=== PATIENT | female | born 1945 | race Caucasian/White ===

== ENCOUNTER 2016-09-27 04:12 | Inpatient (IN) ==
[2016-09-25 15:13] LABS: MANUAL DIFF NEEDED? NO; URINE MICRO REVIEW NEEDED? NO; URINE SOURCE CLEAN CATCH
[2016-09-25 15:17] LABS: BILIRUBIN URINE NEGATIVE (NEGATIVE); BLOOD URINE NEGATIVE (NEGATIVE); COLOR YELLOW; GLUCOSE URINE NEGATIVE (NEGATIVE); LEUKOCYTES URINE TRACE (NEGATIVE); NITRITE URINE NEGATIVE (NEGATIVE); PROTEIN URINE NEGATIVE (NEGATIVE); TURBIDITY URINE CLEAR (CLEAR); UROBILINOGEN URINE NORMAL (NORMAL)
[2016-09-25 15:18] LABS: UR EPITHELIAL CELLS <10 /HPF (<10); URINE BACTERIA NEGATIVE /HPF; URINE RBC <10 /HPF (<10); URINE WBC <10 /HPF (<10)
[2016-09-25 15:19] LABS: BASO% 0.2 % (0.0-0.8); EOS# 0.16 X1000 (0.0-0.7); EOS% 3.1 % (0.0-10.0); HEMATOCRIT 43.8 % (37.0-47.0); HEMOGLOBIN 14.4 g/dL (12.0-16.0); LYMPH# 1.44 X1000 (1.2-3.4); LYMPH% 28.3 % (20.5-51.1); MCHC 32.9 g/dL (33-37); MCV 100.2 FL (81-99); MONO# 0.51 X1000 (0.11-0.59); MPV 10.4 FL (7.4-10.4); NEUT% 58.4 % (42.2-75.2); PLT 221 X1000 (130-400); RBC 4.37 XMIL (4.2-5.4)
[2016-09-25 15:30] LABS: INR 0.98; PROTIME 10.4 Seconds (9.2-11.7); PTT 27.9 Seconds (22.0-36.0)
[2016-09-25 15:34] LABS: AGAP 13; BUN 15 mg/dL (8-22); CALCIUM 9.2 mg/dL (8.8-10.2); CHLORIDE 97 mmol/L (98-107); COSMO 281; POTASSIUM 4.1 mmol/L (3.5-5.1); SODIUM 140 mmol/L (136-145); TCO2 30 mmol/L (25-35)
[2016-09-27] MEDS ORDERED: SYSTANE EYE DROPS OPH PRN (06:45)
[2016-09-27] MEDS ORDERED: CRESTOR PO SCH (09:00)
[2016-09-27] MEDS ORDERED: SYNTHROID PO SCH (09:00)
[2016-09-27] MEDS ORDERED: ASPIRIN EC PO SCH ×2 (09:00→21:00)
[2016-09-27] MEDS ORDERED: COLACE ONE (09:47)
[2016-09-27] MEDS ORDERED: KEFZOL 2 GM/D5W 50 ML ONE (09:47)
[2016-09-27] MEDS ORDERED: LR 1,000 ML ONE (09:47)
[2016-09-27] MEDS ORDERED: REGLAN ONE (09:47)
[2016-09-27] MEDS ORDERED: PEPCID ONE (09:47)
[2016-09-27] MEDS ORDERED: PERCOCET-5 ONE (10:00)
[2016-09-27] MEDS ORDERED: NAROPIN 0.5% ONE (10:32)
[2016-09-27] MEDS ORDERED: TORADOL ONE (10:39)
[2016-09-27] MEDS ORDERED: VANCOMYCIN ONE (10:40)
[2016-09-27] MEDS ORDERED: MARCAINE 0.25% PF/EPI 1:200,000 ONE (10:40)
[2016-09-27] MEDS ORDERED: SODIUM CHLORIDE 0.9% ONE (10:40)
[2016-09-27] MEDS ORDERED: CYKLOKAPRON 1,000 MG/NS 100 ML ONE (10:40)
[2016-09-27] MEDS ORDERED: DURAMORPH ONE (10:40)
[2016-09-27] MEDS ORDERED: CLAVE SECONDARY SET 11953 ONE (10:41)
[2016-09-27] MEDS ORDERED: NEOSPORIN G.U. IRRIGANT ONE (10:41)
[2016-09-27] MEDS ORDERED: EXPAREL 1.3% ONE (10:41)
[2016-09-27] MEDS ORDERED: VERSED ONE (10:43)
[2016-09-27] MEDS ORDERED: DIPRIVAN 1% ONE (14:06)
[2016-09-27] MEDS ORDERED: NEOSTIGMINE ONE (14:20)
[2016-09-27] MEDS ORDERED: SODIUM CHLORIDE 0.9% 20 ML ONE (14:20)
[2016-09-27] MEDS ORDERED: NEO-SYNEPHRINE ONE (14:21)
[2016-09-27] MEDS ORDERED: EPHEDRINE ONE (14:21)
[2016-09-27] MEDS ORDERED: XYLOCAINE-MPF 2% ONE (14:21)
[2016-09-27] MEDS ORDERED: ROBINUL ONE (14:21)
[2016-09-27] MEDS ORDERED: ZOFRAN ONE (14:21)
[2016-09-27] MEDS ORDERED: NORCURON ONE (14:21)
[2016-09-27] MEDS ORDERED: LR 3,000 ML ONE (14:22)
[2016-09-27] MEDS ORDERED: DECADRON ONE (14:22)
[2016-09-27] MEDS ORDERED: PIGGYBACK SET 7393 ONE (14:22)
[2016-09-27] MEDS ORDERED: QUELICIN (DOSE) ONE (14:22)
[2016-09-27] MEDS ORDERED: NS 1,000 ML ONE (14:31)
--- NOTE | 2016-09-27 14:39 | OPERATIVE NOTE ---
PROCEDURE DATE: 09/27/2016 PREOPERATIVE DIAGNOSIS: Left displaced proximal humeral fracture. POSTOPERATIVE DIAGNOSIS: Left displaced proximal humeral fracture. PROCEDURE PERFORMED: Left reverse total shoulder arthroplasty with a DePuy Delta Xtend size 10 cemented stem; a 42, +6 humeral cup; 42 eccentric Glenosphere, and a standard metaglene. SURGEON: Yogesh Agarwal MD WELFARE WORKER: TIN Dubon ANESTHESIA: General. IV FLUIDS: 3200 mL of lactated Ringer's. ESTIMATED BLOOD LOSS: 400 mL. COMPLICATIONS: None. INDICATIONS: The patient is a 71-year-old female, status post fall, sustaining a left proximal humeral fracture. Upon followup visit, she had some displacement and recommendation to proceed with left displaced left proximal humeral fracture. A recommendation to proceed with left reverse total shoulder arthroplasty was offered. The risks and benefits of surgery were explained, including the risks of anesthesia, , bleeding, infection, failure to relieve pain, postop stiffness, nerve injury, blood clots, and other imponderables. All questions were answered. The patient and family wished to proceed with surgery. DETAILS OF OPERATION: The patiently was taken to the operating room and placed supine on the operating table. Once adequate anesthesia was obtained, the patient was placed in semi-Lara beach-chair positioning. The left shoulder was subsequently prepped and draped in usual sterile fashion. A standard deltopectoral incision was made with a skin knife. Hemostasis was obtained using electrocautery. The deltopectoral interval was then developed. Retractors were then placed. Attention was then turned to the proximal humerus, where the fracture site was identified. The subscapularis tendon was excised off its attachment on the lesser tuberosity. Elevation of this bone fragment was then removed. After this had been performed, attention was turned to the humeral head and this was removed without difficulty. The greater tuberosity was also removed with sharp dissection with the 11 blade. After this had been performed, attention was then turned to the glenoid, where circumferential dissection was then performed. A guide was then placed on the glenoid and a guide pin was placed. Reaming was then conducted. The central hole was then dilated. The guide pin was removed. The wound was copiously irrigated with antibiotic pulsatile lavage. A standard metaglene was then placed in position. Three locking screws were placed and had good fixation. The wounds copiously irrigated again once again with antibiotic pulsatile lavage. A 42 eccentric glenosphere was then placed with the eccentricity placed inferiorly. After this had been performed, attention was then turned to the proximal humerus. Sequential reaming was then conducted up to size 10. After copious irrigation, a trial stem was then placed in position to determine the appropriate height. After this had been confirmed, the wound was copiously irrigated with antibiotic irrigation. Vancomycin was mixed with cement on the back table. Cementing was then placed in the intramedullary canal. The cement was then placed in the intramedullary canal. The humeral stem was then placed in 10 degrees of retroversion. After the cement hardened, trial cups were then placed. The 42, +6 humeral cup had excellent stability and range of motion. The trial cup was removed. Copious irrigation was then performed once again. A 42, +6 humeral cup was then placed. The shoulder was then reduced. It was carried through range of motion and good stability range of motion. Exparel was placed in the deep soft tissue, as well as subcutaneous tissue. Copious irrigation was then performed once again with antibiotic pulsatile lavage. Suture of 2-0 Vicryl was used to close the subcutaneous tissue in interrupted fashion. A running 2-0 Prolene was then used to close the skin. Benzoin and Steri-Strips were applied. Adaptic, sterile 4 x 4's, ABD pad, and tape were applied to the left shoulder, followed by a shoulder immobilizer. All counts were correct. The patient tolerated the procedure well and was transferred to the recovery room in stable condition.
--- NOTE | 2016-09-27 15:29 | Diag Imaging Result Document ---
PROCEDURE NAME: SHOULDER 1 VIEW LEFT - 09/27/2016 LEFT SHOULDER 1 VIEW: COMPARISON: None. FINDINGS: There has been left total shoulder arthroplasty. Alignment is anatomic. No hardware fracture or loosening. IMPRESSION: No evidence of complication.
[2016-09-27] MEDS: ZYLOPRIM PO SCH (15:47)
[2016-09-27] MEDS: NEURONTIN PO SCH ×3 (15:49→18:21)
[2016-09-27] MEDS: PRINIVIL PO SCH (15:49)
[2016-09-27] MEDS: MUCINEX PO SCH (15:50)
[2016-09-27] MEDS: LASIX PO SCH (15:50)
[2016-09-27] MEDS: KLOR-CON PO SCH (15:50)
[2016-09-27] MEDS: CENTRUM SILVER PO SCH (15:51)
[2016-09-27] MEDS ORDERED: MORPHINE IV PRN (16:36)
[2016-09-27] MEDS ORDERED: ZOFRAN PO PRN (16:45)
[2016-09-27] MEDS ORDERED: NS 1,000 ML IV SCH (16:45)
[2016-09-27] MEDS ORDERED: MILK OF MAGNESIA PO PRN (16:45)
[2016-09-27] MEDS ORDERED: CYKLOKAPRON 1,000 MG in NS 100 ML IV ONE (18:15)
[2016-09-27] MEDS: TYLENOL PO SCH ×2 (18:21→22:52)
--- NOTE | 2016-09-27 18:40 | HISTORY AND PHYSICAL ---
CHIEF COMPLAINT: Left shoulder pain. HISTORY OF PRESENT ILLNESS: Ms. King is a 71-year-old female with a history of left shoulder pain. She took a fall and fractured her left humerus. Since then she has been having left shoulder pain. Radiographic images show a 3-part fracture of the neck of the humerus. She is being admitted to the hospital today for a total shoulder arthroplasty. PAST MEDICAL CONDITIONS: Hypertension, hyperlipidemia, acid reflux, osteoarthritis, hypothyroidism, neuropathy in her feet and legs. PAST SURGICAL HISTORY: Bilateral cataracts, lumbar surgery, cholecystectomy, rectal lesion. FAMILY HISTORY: Noncontributory. SOCIAL HISTORY: She is . She drinks wine at night. Denies using any tobacco. CURRENT MEDICATIONS: 1. Ocuvite supplement 1 eye drop daily. 2. Lisinopril 20 mg p.o. daily. 3. Crestor 10 mg p.o. daily. 4. Potassium chloride 20 mEq p.o. daily. 5. Allopurinol 300 mg p.o. daily. 6. Synthroid 125 mcg p.o. daily. 7. Lasix 80 mg p.o. daily. 8. Gabapentin 1200 mg p.o. t.i.d. 9. Aspirin 81 mg p.o. daily. 10. Cyanocobalamin 1000 mcg p.o. daily. 11. Naproxen 220 mg 2 tablets p.o. every morning, 12. Mucinex 600 mg p.o. daily. 13. Ascorbic acid 1000 mg p.o. daily. 14. Soothe eye drops 1 as directed. 15. Viactiv chew tab 1 p.o. b.i.d. 16. Oxycodone/acetaminophen 5/325 mg tablet 1 p.o. p.r.n. ALLERGIES: To Requip, niacin, Lyrica, Restasis, Mobic, Zaroxolyn, Bumex, Celebrex, and looks like codeine. PRIMARY CARE PROVIDER: Parisa Light. REVIEW OF SYSTEMS: HEENT: The patient wears glasses. Denies any other HEENT problems. Cardiac: Patient denies any cardiac problems, any syncope or chronic heart disease. Pulmonary: Patient denies any chronic lung disease or any coughing or wheezing. Gastrointestinal: Patient denies any chronic gastrointestinal problems or any nausea, vomiting, diarrhea. Genitourinary: Patient denies any genitourinary problems. Neurological: Patient reports having tingling and pain in her feet and legs. Musculoskeletal: Patient reports left shoulder pain. PHYSICAL EXAMINATION: GENERAL: The patient is awake, sitting up in bed. She is articulate and able to answer questions appropriately. HEENT: Head is normocephalic, atraumatic. Pupils equal, round, react to light. Nares patent. Throat without exudate. CARDIAC: S1-S2 auscultated. No murmur, rub or gallop noted. LUNGS: Clear to auscultation bilaterally in all lung garcia. ABDOMEN: Soft, nontender, nondistended. Bowel sounds present in all quadrants. GENITOURINARY: Not examined. NEUROLOGICAL: Patient has good sensation to dull touch in all extremities. Cranial nerves 2-12 grossly intact. MUSCULOSKELETAL: On physical examination of the left shoulder the patient has pain with passive range of motion. There is some ecchymosis around the upper left arm, around the shoulder and the upper portion of the humerus. IMPRESSION: Three-part fracture of the neck of the humerus. PLAN: Left reverse total shoulder arthroplasty. The risks, benefits, and alternatives of the surgery were discussed with the patient including risk of anesthesia, bleeding, damage to blood vessels, nerves, tendons, ligaments, and other imponderables, and the patient agrees to proceed with the surgery at this time. Dictated by TIN Dubon for Yogesh Agarwal MD
[2016-09-27] MEDS: PERIDEX MT SCH (20:37)
[2016-09-27] MEDS: COLACE PO SCH (20:38)
[2016-09-27] MEDS: KEFZOL 2 GM/D5W 50 ML IV SCH (20:38)
[2016-09-27] MEDS: OXY IR PO PRN (22:51)
[2016-09-28] MEDS: NEURONTIN PO SCH ×3 (00:04→16:28)
[2016-09-28 00:33] LABS: BILIRUBIN URINE NEGATIVE (NEGATIVE); BLOOD URINE NEGATIVE (NEGATIVE); COLOR YELLOW; GLUCOSE URINE NEGATIVE (NEGATIVE); LEUKOCYTES URINE NEGATIVE (NEGATIVE); NITRITE URINE NEGATIVE (NEGATIVE); PROTEIN URINE TRACE mg/dL (NEGATIVE); SP GRAVITY URINE 1.025; TURBIDITY URINE CLEAR (CLEAR); UR EPITHELIAL CELLS <10 /HPF (<10); URINE BACTERIA NEGATIVE /HPF; URINE CULTURE NEEDED? NO; URINE MICRO REVIEW NEEDED? NO; URINE RBC <10 /HPF (<10); URINE SOURCE CATH; URINE WBC <10 /HPF (<10); UROBILINOGEN URINE NORMAL (NORMAL)
[2016-09-28] MEDS: OXY IR PO PRN (02:52)
[2016-09-28] MEDS: TYLENOL PO SCH ×2 (04:42→12:03)
[2016-09-28] MEDS: KEFZOL 2 GM/D5W 50 ML IV SCH (04:43)
[2016-09-28 06:21] LABS: HEMATOCRIT 35.1 % (37.0-47.0); HEMOGLOBIN 11.4 g/dL (12.0-16.0)
[2016-09-28 06:29] LABS: CALCIUM 8.2 mg/dL (8.8-10.2)
[2016-09-28] MEDS ORDERED: SYNTHROID PO SCH (07:00)
--- NOTE | 2016-09-28 08:04 | PROGRESS NOTE ---
DATE: 09/28/2016 SUBJECTIVE: The patient is a pleasant, 71-year-old female who is 1 day status post left reverse shoulder arthroplasty. She is currently resting comfortably this morning. OBJECTIVE: On physical exam, her dressing is intact. She is grossly neurovascularly intact distally. Able to flex all fingers. 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 LABS: Her hemoglobin is 11.4 and hematocrit 35.1. IMPRESSION: Postoperative day #1 status post left reverse shoulder arthroplasty. PLAN: At this point we will change her dressing, discontinue her drain, and Hep-Lock her IV. I will plan on discharging home after physical therapy. She will follow up in 12 days for suture removal.
[2016-09-28] MEDS: PERIDEX MT SCH (08:05)
[2016-09-28] MEDS: ZYLOPRIM PO SCH (08:06)
[2016-09-28] MEDS: MUCINEX PO SCH (08:06)
[2016-09-28] MEDS: KLOR-CON PO SCH (08:06)
[2016-09-28] MEDS: LASIX PO SCH (08:06)
[2016-09-28] MEDS: COLACE PO SCH (08:07)
[2016-09-28] MEDS: PRINIVIL PO SCH (08:07)
[2016-09-28] MEDS: CENTRUM SILVER PO SCH (08:08)
[2016-09-28] MEDS ORDERED: PEPCID PO SCH (09:00)
[2016-09-28] MEDS ORDERED: ALEVE PO SCH (09:00)
[2016-09-28] MEDS ORDERED: DECADRON IV ONE (09:00)
[2016-09-28] MEDS ORDERED: ALBUTEROL NEB INH ONE (14:36)
[2016-09-28 16:11] VITALS: BP 115/55
[2016-09-28] MEDS ORDERED: CRESTOR PO SCH (22:00)
== END 2016-09-28 17:20 | disposition home health service (06) | DRG 483 ==
LOC: SURHOLD 04:12 → 4N 14:14
PROVIDERS: ADMIT Orthopaedic Surgery Adult Reconstructive Orthopaedic Surgery; ATTEND Orthopaedic Surgery Adult Reconstructive Orthopaedic Surgery
PROC: 0RRK00Z Replacement of Left Shoulder Joint with Reverse Ball and Socket Synthetic Substitute, Open Approach (ICD-10-PCS; principal; 2016-09-27 11:47)
DX: S42.292A Other displaced fracture of upper end of left humerus, initial encounter for closed fracture (principal); G62.9 Polyneuropathy, unspecified; I10 Essential (primary) hypertension; E78.5 Hyperlipidemia, unspecified; M19.90 Unspecified osteoarthritis, unspecified site; E03.9 Hypothyroidism, unspecified; Z87.891 Personal history of nicotine dependence; E66.9 Obesity, unspecified; Z68.36 Body mass index [BMI] 36.0-36.9, adult; Z79.82 Long term (current) use of aspirin; Z79.899 Other long term (current) drug therapy; Z79.1 Long term (current) use of non-steroidal anti-inflammatories (NSAID)
CPT/HCPCS: 80048; 81001; 85014; 85018; 85025; 85610; 85730; 86850; 86900; 86901; 94640; 94761; C1713; C9290; J0330; J0690; J1100; J1885; J2250; J2274; J2370; J2405; J2795; J3370; J7030; J7120; 97110-GP; 97116-GP; 97530-GP; J2710; S0020

== ENCOUNTER 2019-11-01 20:47 | Inpatient (IN) ==
--- NOTE | 2019-11-01 21:54 | Diag Imaging Result Doc PS360 ---
EXAM: CHEST-PORTABLE 11/01/2019 HISTORY: unreponsive TECHNIQUE: AP portable at 2141 COMMENT: There is an endotracheal tube with its tip 2 cm above the michelle. The inspiration is less optimal than on 08/25/2019. There is a platelike opacity in the lingula which was not previously present. IMPRESSION: Subsegmental atelectasis in the lingula. Electronically signed by Cristino Street 11/01/2019 9:52 PM
[2019-11-01] MEDS ORDERED: EPINEPHRINE SYRINGE ONE (22:00)
[2019-11-01] MEDS ORDERED: DIPRIVAN 1% IV STA (22:34)
[2019-11-01] MEDS ORDERED: NS 1,000 ML IV ONE ×3 (22:38→23:36)
[2019-11-01] MEDS ORDERED: DIPRIVAN 1% 1,000 MG/100 ML BOTTLE IV SCH (22:45)
[2019-11-01] MEDS ORDERED: D50W SYRINGE ONE (23:50)
[2019-11-01] MEDS ORDERED: ATIVAN ONE (23:57)
[2019-11-02] MEDS ORDERED: ATIVAN IM ONE (00:32)
[2019-11-02 00:55] LABS: BASO% 1.1 % (0.0-0.8); EOS# 0.07 X1000 (0.0-0.7); EOS% 0.3 % (0.0-10.0); HEMATOCRIT 35.4 % (37.0-47.0); IMM GRAN# 1.29 X1000 (0.0-0.04); IMM GRAN% 4.7 % (0.0-0.5); LYMPH# 4.14 X1000 (1.2-3.4); MCH 32.1 PG (27-31); MCHC 31.1 g/dL (33-37); MCV 103.2 FL (81-99); MONO# 1.54 X1000 (0.11-0.59); MONO% 5.6 % (1.7-9.3); MPV 11.6 FL (7.4-10.4); NEUT# 20.18 X1000 (1.4-6.5); NEUT% 73.3 % (42.2-75.2); PLT 241 X1000 (130-400); RBC 3.43 XMIL (4.2-5.4); RDW 13.7 % (11.5-14.5); WBC 27.52 X1000 (4.8-10.8)
[2019-11-02] MEDS ORDERED: DIPRIVAN 1% IV ONE (00:57)
[2019-11-02] MEDS ORDERED: QUELICIN IV ONE (00:58)
[2019-11-02 01:24] LABS: URINE SOURCE CLEAN CATCH
[2019-11-02 01:35] LABS: BILIRUBIN URINE NEGATIVE (NEGATIVE); BLOOD URINE MODERATE (NEGATIVE); COLOR YELLOW; GLUCOSE URINE NEGATIVE (NEGATIVE); KETONE URINE NEGATIVE (NEGATIVE); LEUKOCYTES URINE NEGATIVE (NEGATIVE); NITRITE URINE NEGATIVE (NEGATIVE); PH URINE 5.5; PROTEIN URINE TRACE mg/dL (NEGATIVE); SP GRAVITY URINE 1.013; TURBIDITY URINE HAZY (CLEAR); UROBILINOGEN URINE NORMAL (NORMAL)
[2019-11-02 01:43] LABS: CK INDEX 0.7 (0.0-2.5); CK-MB 119.4 ng/mL (0.0-5.0)
[2019-11-02 01:43] LABS: UR AMPHETAMINES QUAL NONE DETECTED (NONE DETECT); UR BARBITUATES QUAL NONE DETECTED (NONE DETECT); UR BENZODIAZEPIN QUAL NONE DETECTED (NONE DETECT); UR CANNABINOIDS QUAL NONE DETECTED (NONE DETECT); UR COCAINE QUAL NONE DETECTED (NONE DETECT); UR EPITHELIAL CELLS <10 /HPF (<10); UR METHADONE QUAL NONE DETECTED (NONE DETECT); UR OPIATES QUAL NONE DETECTED (NONE DETECT); UR OXYCODONE QUAL NONE DETECTED (NONE DETECT); UR PCP QUAL NONE DETECTED (NONE DETECT); URINE BACTERIA NEGATIVE /HPF; URINE WBC <10 /HPF (<10)
[2019-11-02 01:50] LABS: URINE CASTS GRANULAR PRESENT; URINE CRYSTALS NONE SEEN; URINE RBC <10 /HPF (<10); URINE SMALL ROUND CELLS NONE SEEN; URINE YEAST NONE SEEN
[2019-11-02 01:55] LABS: ALLEN TEST YES; BE -24.3 mmoll (-3.0-3.0); BLOOD TYPE ARTERIAL; METHB 0.2 % (0.0-1.5); O2(CT) 16.1 mL/dL (15.0-23.0); PCO2(98.6) 31 mmHg (35-45); PO2(98.6) 113 mmHg (60-100); SAMPLE BLOOD; SAO2 97.9 % (95.0-100.0); SRATE 15 BPM; THB 11.8 g/dL (11.5-17.4); TVOL 500 mL
[2019-11-02 01:57] LABS: pH(98.6) 6.95 (7.35-7.45)
[2019-11-02 01:58] LABS: MODALITY VENTILATOR
[2019-11-02] MEDS ORDERED: XYLOCAINE-MPF 1% INJ ONE (02:11)
[2019-11-02] MEDS ORDERED: ROCEPHIN IV ONE (02:11)
[2019-11-02] MEDS ORDERED: ROCEPHIN 1 GM in NS 50 ML IV ONE (02:12)
[2019-11-02] MEDS ORDERED: VANCOMYCIN IV PER PHARMACY MISC SCH ×2 (02:15→18:45)
[2019-11-02 02:35] LABS: ALB/GLOB RATIO 1.4; ALBUMIN 2.7 g/dL (3.5-5.0); CALCIUM 7.7 mg/dL (8.8-10.2); CREATININE 5.4 mg/dL (0.5-0.9); TOTAL BILIRUBIN 1.05 mg/dL (0.20-1.00); TOTAL PROTEIN 4.6 g/dL (6.3-8.3)
[2019-11-02 02:36] LABS: POTASSIUM 6.3 mmol/L (3.5-5.1)
--- NOTE | 2019-11-02 02:47 | PROVIDER DOCUMENTATION ---
This chart was entered by Shaun Connolly Scribe, acting as scribe for Andres Mosley DO. HPI-Critical Care - General Stated Complaint: unresponsive Time Seen by Provider: 11/01/19 21:18 Patient arrived via EMS?: Yes Source: EMS Unable to obtain history due to:: other (unresponsive) Allergies/Adverse Reactions: Allergies Allergy/AdvReac Type Severity Reaction Status Date / Time pregabalin [From Lyrica] AdvReac Intermediate SWELLING Verified 09/27/16 10:03 bumetanide [From Bumex] AdvReac Mild RASH Verified 09/27/16 10:03 celecoxib [From Celebrex] AdvReac Mild RASH Verified 09/27/16 10:03 codeine AdvReac Mild RASH Verified 09/27/16 10:03 cyclosporine [From Restasis] AdvReac Mild ITCHING Verified 09/27/16 10:03 meloxicam [From Mobic] AdvReac Mild RASH Verified 09/27/16 10:03 metolazone [From Zaroxolyn] AdvReac Mild RASH Verified 09/27/16 10:03 niacin AdvReac Mild RASH Verified 09/27/16 10:03 ropinirole HCl * AdvReac Mild RASH Verified 09/27/16 10:03 [From Requip] Home Medications: Home Medication List Medication Instructions Recorded Confirmed Last Taken Type Allopurinol 300 mg PO DAILY 01/13/16 06/05/19 08/30/17 History Aspirin [Aspirin EC] 81 mg PO DAILY 01/13/16 06/05/19 1 Week Ago History ~08/24/17 Gabapentin 400 mg PO BID 01/13/16 06/05/19 08/30/17 History LISINOpril [Prinivil] 20 mg PO DAILY 01/13/16 06/05/19 08/30/17 History Levothyroxine [Synthroid] 125 mcg PO DAILY 01/13/16 06/05/19 08/30/17 History Potassium Chloride [Klor-Con M20] 20 meq PO DAILY 01/13/16 06/05/19 08/30/17 History Rosuvastatin Calcium [Crestor] 10 mg PO DAILY 01/13/16 06/05/19 08/30/17 History Ascorbic Acid [Vitamin C] 1,000 mg PO DAILY 0106/05/19 08/30/17 History Cyanocobalamin (Vitamin B-12) 1,000 mcg PO DAILY 08/01/16 06/05/19 08/30/17 History [Vitamin B-12] Folic Acid 1 mg PO DAILY 08/27/17 06/05/19 08/30/17 History Calcium Carb/Vitamin D3/Vit K1 1 tab PO DAILY 06/05/19 06/05/19 Unknown History [Viactiv 650 mg-12.5 Mcg Chew] Pantoprazole [Protonix 40 mg PO DAILY 06/05/19 06/05/19 Unknown History [Nonformulary]] Tetrahydrozoline HCl [Eye Drops] 1 dose ORDERED PRN PRN 06/05/19 06/05/19 Unknown History Torsemide 20 mg PO DAILY 06/05/19 06/05/19 Unknown History - History of Present Illness-Critical Care Nature of Presenting Problem: Pt is a 74 y/o F presents to the ED from personal residence unresponsive. Neighbors have not seen pt is a few days and checked on her. Unknown source reports she has not been seen for 4 days. Pre-hospital Treatment: Initiated oxygen Review of Systems - Adult - REVIEW OF SYSTEMS - ADULT ROS:: unobtainable per condition Constitutional: reports: no symptoms reported Past History - Adult - PAST MEDICAL HISTORY-ADULT Review of Records: reports: Old Records Reviewed, Nursing Assessment Review, Medications Reviewed Major Childhood Illnesses: reports: denies history Cardiovascular: reports: denies history, HTN Respiratory: reports: denies history Gastrointestinal: reports: GERD Obstetrical/Gynecological: reports: other (post menopausal) Musculoskeletal: reports: other (neuropathy) Neurological: reports: denies history Psychiatric: reports: denies history Endocrine/Immune: reports: denies history Other Conditions: reports: denies history - PRIOR SURGERIES/PROCEDURES Surgical/Procedure History: reports: cholecystectomy, other (hernia repair; lower back surgery) - IMMUNIZATION STATUS Childhood Immunizations: See Nurse Assessment Flu Vaccine: See Nurse Assessment - FAMILY HISTORY Family History: reviewed, not pertinent - SOCIAL HISTORY Smoking: non-smoker Living Situation: alone Physical Exam-General - CONSTITUTIONAL General Appearance: other (Pt covered in feces on arrival). negative: appears well, alert - EYES Eyes: pale conjunctivae. negative: PERRL/EOMI (pupils dilated with mild respone to light on left) - HEAD, EARS, NOSE, MOUTH & THROAT HENMT: negative: moist mucous membranes (dry), normal ENT inspection - RESPIRATORY Respiratory: decreased rate, other (pt shallow breathing on arrival, BVM until intubation) - CARDIOVASCULAR Cardiovascular: negative: normal peripheral pulses (weak thready pulses), regular rate, rhythm (irregular) - MUSCULOSKELETAL Extremity: no pedal edema. negative: normal gait, normal inspection (left upper extremity swelling and hematoma cover all the upper arm) - SKIN Integumentary: mottled, pallor. negative: normal turgor, warm/dry (cool) - NEUROLOGIC Neurologic: negative: grossly normal, no motor/sensory deficits - PSYCHIATRIC Psych/Mental Status: negative: normal mood/affect, normal thought content, normal thought process, oriented x 3 (GCS 7) Progress - PLAN OF CARE/RESULTS Progress/Plan/Lab Results: Vital Signs - 8 hr 11/01/19 21:16 11/01/19 21:26 11/01/19 21:45 Pulse Rate 184 H 152 H 166 H Respiratory Rate 22 16 28 H Blood Pressure 150/97 112/106 120/68 O2 Sat by Pulse Oximetry 85 L 82 L 83 L 11/01/19 22:40 11/01/19 22:46 11/01/19 22:53 Pulse Rate 130 H 104 H 140 H Respiratory Rate 25 H 22 29 H Blood Pressure 69/51 68/34 149/106 O2 Sat by Pulse Oximetry 98 92 L 99 11/01/19 23:00 11/01/19 23:27 11/01/19 23:30 Pulse Rate 125 H 211 H 169 H Respiratory Rate 20 24 28 H Blood Pressure 45/37 56/41 71/45 O2 Sat by Pulse Oximetry 100 100 Laboratory Results - last 24 hr 11/01/19 11/02/19 11/02/19 23:44 00:19 00:20 WBC RBC Hgb Hct MCV MCH MCHC RDW Std Deviation Plt Count MPV Immature Gran % (Auto) Neut % (Auto) Lymph % (Auto) Payne % (Auto) Eos % (Auto) Baso % (Auto) Immature Gran # (Auto) Neut # (Auto) Lymph # (Auto) Payne # (Auto) Eos # (Auto) Baso # (Auto) D-Dimer, Quantitative Specimen Type Sample Site pH pCO2 pO2 HCO3 Base Excess Oxyhemoglobin ABG O2 Sat (Calculated) ABG O2 Saturation ABG Carboxyhemoglobin ABG Methemoglobin Jd Test A-a O2 Difference Total Hemoglobin Lactate Blood Gas Modality Vent Mode Spontaneous Rate FiO2 % Tidal Volume PEEP Sodium Potassium Chloride Carbon Dioxide Anion Gap BUN Creatinine Estimated GFR/1.73 m2 BUN/Creatinine Ratio Glucose POC Glucose 49 L 171 H D Calculated Osmolality Calcium Total Bilirubin AST ALT Alkaline Phosphatase Creatine Kinase 82532 H Creatine Kinase Index 0.7 CK-MB (CK-2) 119.40 H Troponin T High Sens Ifz-O-Ccdavnxfuvw Pept Total Protein Albumin Globulin Albumin/Globulin Ratio Plasma Lactate Urine Source Urine Color Urine Turbidity Urine pH Ur Specific [place] Urine Protein Ur Glucose (Stick) Ur Ketones (Stick) Urine Blood Urine Nitrite Urine Bilirubin Urobilinogen Dipstick Urine Leukocytes Urine WBC (Auto) Urine RBC (Auto) U Epithel Cells (Auto) Urine Bacteria (Auto) Urine Crystals Small Round Cells Urine Casts Urine Yeast-like Cells Urine Opiates Screen Ur Oxycodone Screen Ur Methadone, Qual Ur Barbiturates Screen Ur Phencyclidine Scrn Ur Amphetamines Screen U Benzodiazepines Scrn Urine Cocaine Screen U Cannabinoids Screen 11/02/19 11/02/19 11/02/19 00:20 00:20 00:20 WBC RBC Hgb Hct MCV MCH MCHC RDW Std Deviation Plt Count MPV Immature Gran % (Auto) Neut % (Auto) Lymph % (Auto) Payne % (Auto) Eos % (Auto) Baso % (Auto) Immature Gran # (Auto) Neut # (Auto) Lymph # (Auto) Payne # (Auto) Eos # (Auto) Baso # (Auto) D-Dimer, Quantitative > 20.00 H Specimen Type Sample Site pH pCO2 pO2 HCO3 Base Excess Oxyhemoglobin ABG O2 Sat (Calculated) ABG O2 Saturation ABG Carboxyhemoglobin ABG Methemoglobin Jd Test A-a O2 Difference Total Hemoglobin Lactate Blood Gas Modality Vent Mode Spontaneous Rate FiO2 % Tidal Volume PEEP Sodium Potassium Chloride Carbon Dioxide Anion Gap BUN Creatinine Estimated GFR/1.73 m2 BUN/Creatinine Ratio Glucose POC Glucose Calculated Osmolality Calcium Total Bilirubin AST ALT Alkaline Phosphatase Creatine Kinase Creatine Kinase Index CK-MB (CK-2) Troponin T High Sens 104 H* Peo-X-Zuuibggioth Pept 1062 H Total Protein Albumin Globulin Albumin/Globulin Ratio Plasma Lactate Urine Source Urine Color Urine Turbidity Urine pH Ur Specific [place] Urine Protein Ur Glucose (Stick) Ur Ketones (Stick) Urine Blood Urine Nitrite Urine Bilirubin Urobilinogen Dipstick Urine Leukocytes Urine WBC (Auto) Urine RBC (Auto) U Epithel Cells (Auto) Urine Bacteria (Auto) Urine Crystals Small Round Cells Urine Casts Urine Yeast-like Cells Urine Opiates Screen Ur Oxycodone Screen Ur Methadone, Qual Ur Barbiturates Screen Ur Phencyclidine Scrn Ur Amphetamines Screen U Benzodiazepines Scrn Urine Cocaine Screen U Cannabinoids Screen 11/02/19 11/02/19 11/02/19 00:20 00:20 00:22 WBC 27.52 H RBC 3.43 L Hgb 11.0 L Hct 35.4 L MCV 103.2 H MCH 32.1 H MCHC 31.1 L RDW Std Deviation 13.7 Plt Count 241 MPV 11.6 H Immature Gran % (Auto) 4.7 H Neut % (Auto) 73.3 Lymph % (Auto) 15.0 L Payne % (Auto) 5.6 Eos % (Auto) 0.3 Baso % (Auto) 1.1 H Immature Gran # (Auto) 1.29 H Neut # (Auto) 20.18 H Lymph # (Auto) 4.14 H Payne # (Auto) 1.54 H Eos # (Auto) 0.07 Baso # (Auto) 0.30 H D-Dimer, Quantitative Specimen Type Sample Site pH pCO2 pO2 HCO3 Base Excess Oxyhemoglobin ABG O2 Sat (Calculated) ABG O2 Saturation ABG Carboxyhemoglobin ABG Methemoglobin Jd Test A-a O2 Difference Total Hemoglobin Lactate Blood Gas Modality Vent Mode Spontaneous Rate FiO2 % Tidal Volume PEEP Sodium 144 Potassium 6.3 H* Chloride 96 L Carbon Dioxide 9 L Anion Gap 39 BUN 82 H Creatinine 5.4 H Estimated GFR/1.73 m2 8 BUN/Creatinine Ratio 15 Glucose 171 H POC Glucose Calculated Osmolality 316 Calcium 7.7 L Total Bilirubin 1.05 H AST 3099 H ALT 2126 H Alkaline Phosphatase 166 H Creatine Kinase Creatine Kinase Index CK-MB (CK-2) Troponin T High Sens Tel-F-Udzrykqspeo Pept Total Protein 4.6 L Albumin 2.7 L Globulin 1.9 Albumin/Globulin Ratio 1.4 Plasma Lactate 15.8 H* Urine Source Urine Color Urine Turbidity Urine pH Ur Specific [place] Urine Protein Ur Glucose (Stick) Ur Ketones (Stick) Urine Blood Urine Nitrite Urine Bilirubin Urobilinogen Dipstick Urine Leukocytes Urine WBC (Auto) Urine RBC (Auto) U Epithel Cells (Auto) Urine Bacteria (Auto) Urine Crystals Small Round Cells Urine Casts Urine Yeast-like Cells Urine Opiates Screen Ur Oxycodone Screen Ur Methadone, Qual Ur Barbiturates Screen Ur Phencyclidine Scrn Ur Amphetamines Screen U Benzodiazepines Scrn Urine Cocaine Screen U Cannabinoids Screen 11/02/19 11/02/19 11/02/19 00:46 00:46 01:46 WBC RBC Hgb Hct MCV MCH MCHC RDW Std Deviation Plt Count MPV Immature Gran % (Auto) Neut % (Auto) Lymph % (Auto) Payne % (Auto) Eos % (Auto) Baso % (Auto) Immature Gran # (Auto) Neut # (Auto) Lymph # (Auto) Payne # (Auto) Eos # (Auto) Baso # (Auto) D-Dimer, Quantitative Specimen Type ARTERIAL Sample Site R RADIAL pH 6.95 L* pCO2 31 L pO2 113 H HCO3 6.0 L Base Excess -24.3 L Oxyhemoglobin 96.0 ABG O2 Sat (Calculated) 16.1 ABG O2 Saturation 97.9 ABG Carboxyhemoglobin 1.70 ABG Methemoglobin 0.2 Jd Test YES A-a O2 Difference 561.0 Total Hemoglobin 11.8 Lactate 17.90 H* Blood Gas Modality VENTILATOR Vent Mode A/C Spontaneous Rate 15 FiO2 % 100.0 Tidal Volume 500 PEEP 5.0 Sodium Potassium Chloride Carbon Dioxide Anion Gap BUN Creatinine Estimated GFR/1.73 m2 BUN/Creatinine Ratio Glucose POC Glucose Calculated Osmolality Calcium Total Bilirubin AST ALT Alkaline Phosphatase Creatine Kinase Creatine Kinase Index CK-MB (CK-2) Troponin T High Sens Jpi-U-Gyzaohfeifm Pept Total Protein Albumin Globulin Albumin/Globulin Ratio Plasma Lactate Urine Source CLEAN CATCH Urine Color YELLOW Urine Turbidity HAZY Urine pH 5.5 Ur Specific [place] 1.013 Urine Protein TRACE A Ur Glucose (Stick) NEGATIVE Ur Ketones (Stick) NEGATIVE Urine Blood MODERATE A Urine Nitrite NEGATIVE Urine Bilirubin NEGATIVE Urobilinogen Dipstick NORMAL Urine Leukocytes NEGATIVE Urine WBC (Auto) <10 Urine RBC (Auto) <10 U Epithel Cells (Auto) <10 Urine Bacteria (Auto) NEGATIVE Urine Crystals NONE SEEN Small Round Cells NONE SEEN Urine Casts GRANULAR PRESENT Urine Yeast-like Cells NONE SEEN Urine Opiates Screen NONE DETECTED Ur Oxycodone Screen NONE DETECTED Ur Methadone, Qual NONE DETECTED Ur Barbiturates Screen NONE DETECTED Ur Phencyclidine Scrn NONE DETECTED Ur Amphetamines Screen NONE DETECTED U Benzodiazepines Scrn NONE DETECTED Urine Cocaine Screen NONE DETECTED U Cannabinoids Screen NONE DETECTED Orders Category Date Time Status Moore Cath Insertion ORDERED Care 11/01/19 22:53 Active NG/OG/Feeding Tube Insertion ORDERED Care 11/02/19 02:07 Active Neurological Check Q12-HR ASSESS Care 11/01/19 22:34 Active CHEST-PORTABLE [RAD] Stat Exams 11/01/19 21:34 Completed CHEST-PORTABLE [RAD] Stat Exams 11/02/19 00:[address] HEAD W/O CONTRAST [CT] Stat Exams 11/01/19 21:34 Taken ABG [RESP] Routine Lab 11/02/19 01:46 Completed CBC WITH ELECTRONIC DIFF [HEME] Stat Lab 11/02/19 00:20 Completed CK PROFILE [SP CHEM] Stat Lab 11/01/19 21:39 Completed COMPREHENSIVE METABOLIC PANEL [CHEM] Stat Lab 11/02/19 00:20 Completed D-DIMER [COAG] Stat Lab 11/01/19 21:39 Completed LACTATE, PLASMA [CHEM] Routine Lab 11/02/19 00:22 Completed PRO B-NATRIURETIC PEPTIDE Stat Lab 11/01/19 21:39 Completed TROPONIN T HIGH SENSITIVITY Stat Lab 11/02/19 00:20 Completed UA NIMS W/REFLEX CULT [URINALYSIS] Stat Lab 11/02/19 00:46 Completed URINE DRUG SCREEN Stat Lab 11/02/19 00:46 Completed URINE MANUAL MICROSCOPIC [URINALYSIS] Stat Lab 11/02/19 00:46 Completed 0.9% Sodium Chloride Inj [Ns] 1,000 ml Med 11/01/19 22:38 Discontinued IV 999 mls/hr 0.9% Sodium Chloride Inj [Ns] 1,000 ml Med 11/01/19 23:35 Discontinued IV 999 mls/hr 0.9% Sodium Chloride Inj [Ns] 1,000 ml Med 11/01/19 23:36 Discontinued IV 999 mls/hr CefTRIAXONE [Rocephin] Med 11/02/19 02:11 Discontinued 1 gm IV NOW ONE CefTRIAXONE [Rocephin] 1 gm Med 11/02/19 02:12 Discontinued 0.9% Sodium Chloride Inj [Ns] 50 ml IV NOW Dextrose 5%-0.45% NaCl Inj [D5 1/2 Ns] 250 ml Med 11/01/19 22:00 Active Norepinephrine [Levophed] 8 mg IV As Directed mls/hr Dextrose 50% Syringe [D50w Syringe] Med 11/01/19 23:50 Discontinued 50 ml .ROUTE .STK-MED ONE Dopamine 800 mg/D5w Med 11/01/19 23:00 Active 800 mg in 500 ml IV As Directed mls/hr Lidocaine 1% Pf [Xylocaine-Mpf 1%] Med 11/02/19 02:11 Discontinued 5 ml INJ NOW ONE Lorazepam [Ativan] Med 11/01/19 23:57 Discontinued 4 mg .ROUTE .STK-MED ONE Lorazepam [Ativan] Med 11/02/19 00:32 Discontinued 4 mg IM NOW ONE Pharmacy Order [Vancomycin IV Per Pharmacy] Med 11/02/19 02:15 Ordered 1 each MISC DIRECTED Propofol [Diprivan 1%] Med 11/01/19 22:34 Discontinued 10 mg IV STAT STA Propofol [Diprivan 1%] Med 11/02/19 00:57 Discontinued 100 mg IV STAT ONE Propofol [Diprivan 1%] Med 11/01/19 22:45 Active 1,000 mg in 100 ml IV As Directed mls/hr Succinylcholine [Quelicin] Med 11/02/19 00:58 Discontinued 100 mg IV NOW ONE EKG [EKG] Stat Ther 11/01/19 21:39 Ordered Result Diagrams: 11/02/19 00:20 11/02/19 00:20 - REASSESSMENT Reassessment #1 Time Reassessed: 22:09 Status: worsening (Pt was being prepared for CT when pulse was lost. CPR began at 2159, 1 Epi and pulse at 2203. Pt remain unresponisve and vented) Reassessment #2 Time Reassessed: 22:37 Status: improving (Open eyes to voice. Moving all extremities except LLE. Will squeeze left hand) Reassessment #3 Time Reassessed: 01:38 Status: improving (Opens eyes and moves upper extremities. moves left leg) - XRAY 1 XRAY Study: Chest Impression: Abnormal (IMPRESSION: Subsegmental atelectasis in the lingula. Electronically signed by Cristino Street 11/01/2019 9:52 PM) - CT/MRI 1 CT Study: Head Impression: Normal (Impression. Motion artifact mildylimits evluation. Within limits of motion, no acute intracranial finding Per Radiologist Stone.) Procedures - CENTRAL LINE Consent Form Signed?: No (patient intubated. No family) Time-Out Verification Completed?: Yes Central Line Lumen: triple Central Line Procedure Prep: Hand Hygeine Performed, Kit Utilized, Chloraprep Patient Position (To prevent Air Embolism): Trendelenburg (SC/IJ) Central Line Position: subclavian (L) Ultrasound Guided?: No Hat, mask, sterile gown, & sterile gloves worn by physician?: Yes Site scrubbed vigorously for 30 seconds? (Groin: 2 min): Yes Anesthetic: 1%, Lidocaine/Xylocaine Volume of Anesthetic (ml's): 2 Post Procedure: Sutured in place Complications: none - INTUBATION Time of Intubation: 21:22 Intubation Method: orotracheal Equipment: ETT Tube Size (cm): 7.5 Pretreated with 100% Oxygen?: Yes Breath Sounds after Intubation: equal ETT Primary Tube Confirmation: Capnometry CO2 Change, Chest Rise and Fall Intubation Complications: no complications Vent Settings: See Respiratory Therapy Notes Departure - Departure Date of Disposition Decision: 11/02/19 Time of Disposition Decision: 02:46 DIAGNOSIS: Sepsis associated hypotension Disposition: ADMITTED INPATIENT 09 Certified Medical Emergency: Emergent Condition: Critical Referrals and Follow-Ups: Parisa Light MD [Primary Care Provider] - - Critical Care Note This patient required my direct & personal management of CC.: Yes Total Time (mins): 136 Critical Care Statement: This patient required my direct personal management to treat or rule out processes, the absence of which, could potentiallly result in sudden, clinically significant life or limb threatening deterioration. Attestation - Physician/ CAROLA Attestation Patient care was provided by Advanced Practice Provider:: No The physician spent face to face time with patient:: Yes Advanced Practice Provider documentation review:: Supervising physician onsite and consulted in the evaluation and care of this patient. The physician did have a face to face encounter with the patient. This chart was documented by the indicated scribe, (Shaun Connolly Scribe) and accurately reflects the services I performed and decisions made by me, Andres Mosley DO, as attested by the provider's signature.
[2019-11-02] MEDS ORDERED: LOKELMA POWDER PACKET PO ONE (03:13)
[2019-11-02] MEDS ORDERED: CALCIUM GLUCONATE 1 GM in NS 50 ML IV ONE ×2 (03:19→09:28)
[2019-11-02] MEDS: LEVOPHED 8 MG in D5 1/2 NS 250 ML IV SCH ×5 (03:52→17:03)
[2019-11-02] MEDS: SODIUM BICARBONATE 8.4% 150 MEQ in STERILE WATER INJ. 1,000 ML IV SCH ×3 (04:06→21:41)
--- NOTE | 2019-11-02 05:15 | HISTORY AND PHYSICAL ---
CHIEF COMPLAINT: Unresponsive. HISTORY OF PRESENT ILLNESS: Ms. King is a 74-year-old female who came in from her personal residence unresponsive. Apparently, the neighbors had not seen or heard from her in the past couple of days, I think since Sunday, so they went to check in on her. She was never responsive in the emergency room. She I believe briefly lost a pulse in the ER. She was intubated. No HPI for the most part could ever be obtained. She has a past medical history of hypertension, hyperlipidemia, GERD, osteoarthritis, hypothyroidism, neuropathy in her legs and feet and chronic pain. Toxicology screen was negative. However, she was profoundly acidotic related to lactic acidosis with a pH of 6.95. Also had leukocytosis, white count 27.52. She was hyperkalemic with rhabdomyolysis and acute kidney injury as well as shock liver. The patient as noted above was intubated. She is critical and she was started on vasopressors. Levophed was maxed out and then she was subsequently started on dopamine. She received 3 L of saline in the emergency room. She will be admitted to the ICU for further evaluation and treatment. PAST MEDICAL HISTORY: See HPI. PREVIOUS SURGICAL HISTORY: Left shoulder rotator cuff repair, bilateral cataract surgery, lumbar surgery, cholecystectomy, rectal lesion repair. FAMILY HISTORY: Father had coronary artery disease starting in his 50s. He from myocardial infarction at age 85. Her brother has coronary artery disease. SOCIAL HISTORY: . Lives at home either with her sister or her sister visits frequently. She is retired. 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 Drinks a glass of wine most nights. Denies tobacco or illicit drugs. HOME MEDICATIONS: A list could not be reconciled at this time. ALLERGIES: Lyrica causing swelling. Bumex causing rash. Celebrex causing rash. Codeine causing rash. Restasis causing itch. Mobic causing rash. Zaroxolyn causing rash. Niacin causing rash and Requip causing rash. REVIEW OF SYSTEMS: Fourteen-point review of systems could not be conducted with the patient as she is intubated and sedated. PHYSICAL EXAMINATION: VITAL SIGNS: Temperature 95.7, pulse 169, respirations 28, blood pressure 71/45, oxygen saturation 94% on 100% mechanical ventilation. GENERAL: Obese 74-year-old female lying in the ER stretcher. She is intubated and sedated. She is hypotensive on vasopressors. HEENT: Head is atraumatic, normocephalic. Pupils equal, round, reactive to light. Extraocular eye movement is intact. Sclera is anicteric. Conjunctiva is pale. Oral mucosa is dry. NECK: Short and thick. Trachea is midline. No cervical lymphadenopathy. CARDIAC: S1, S2 appreciated. She is tachycardic. No murmurs, gallops, rubs. LUNGS: Clear to auscultation bilaterally. No rhonchi, wheezes, rales. Symmetric rise and fall with respirations. ABDOMEN: Protuberant. Soft, nondistended, nontender. Bowel sounds present all 4 quadrants, normoactive. No pulsatile mass. No organomegaly. EXTREMITIES: No clubbing. Mildly cyanotic. Decreased capillary refill time. No edema. Very thready pedal pulses. INTEGUMENTARY: Right upper arm ecchymosis with induration from a hematoma. There are also blisters appearing on the skin. Left hand also noted with ecchymosis but no induration. NEUROLOGICAL: This could not be examined at this time as she is ventilated and sedated. GENITOURINARY: Moore catheter in place. Otherwise deferred. DIAGNOSTIC DATA: CT of the head: No acute intracranial hemorrhage. Chest x- ray: No effusions, infiltrates or edema. LABORATORY DATA: WBC 27.52. Hemoglobin 11. Hematocrit 35.4. Platelet count 241. D-dimer greater than 20. ABG: pH 6.95, CO2 of 31, PO2 of 113, bicarbonate 6. This is on 100% assist control ventilation. Sodium 144. Potassium 6.3. Chloride 96. Carbon dioxide 9. BUN 82. Creatinine 5.4. Glucose 171. AST 3099. ALT 2126. CK 16,699. Troponin 104. Plasma lactate 19.8. TSH 9.22. Urine unremarkable. Toxicology screen is negative. ASSESSMENT: 1. Septic shock of unknown etiology. 2. Profound lactic acidosis. 3. Acute respiratory failure. 4. Acute kidney injury. 5. Fluid volume depletion. 6. Hyperkalemia. 7. Transaminitis likely secondary to shock liver. 8. Rhabdomyolysis. 9. Type 2 myocardial infarction versus demand ischemia. PLAN: Admit patient to ICU. She is in critical condition. We will give 1 mg/kg of Lovenox 1 time dose related to her elevated D-dimer. Related to the patient's renal function, she cannot have IV contrast to rule out pulmonary embolism. We will give the Lovenox related to suspicion of a possible PE, possible right upper extremity clot. Place the patient on bicarbonate drip at 150 mL an hour. Recheck ABG. We will place the patient on IV Rocephin, clindamycin and vancomycin for fear that the patient has ischemic injury to her right upper extremity. We will continue to trend patient's liver enzymes. Hopeful that she will be able to sustain or wean off vasopressors. Consult Dr. Serna related to her kidney injury and Dr. Barnes for ventilator management. Her potassium has been treated with Lokelma as well as D50, and insulin and calcium gluconate for myocardial muscle protection. Also, please note that the patient was at times noted to be very tachycardic in the emergency room sometimes up to 200 beats per minute but this was related to peaked T waves and the machine counting her QRS and her ST- segment as individual beats. We will continue to sedate the patient. We will also check an x-ray of the right shoulder. Consider ching CT once patient is more hemodynamically stable. Further recommendations per patient clinical course. CRITICAL CARE TIME: 30 minutes. Dictated by TIN Aguirre for Alin Huang MD cc: TIN Aguirre [facility]
[2019-11-02] MEDS ORDERED: VANCOMYCIN 1,750 MG in NS 250 ML IV ONE (05:45)
[2019-11-02 06:22] LABS: ALLEN TEST NO; BE -23.8 mmoll (-3.0-3.0); BLOOD TYPE ARTERIAL; O2(CT) 4.9 mL/dL (15.0-23.0); PCO2(98.6) 47 mmHg (35-45); SAMPLE BLOOD; SAO2 32.6 % (95.0-100.0); SRATE 15 BPM; THB 10.9 g/dL (11.5-17.4); TVOL 500 mL
[2019-11-02 06:25] LABS: pH(98.6) 6.88 (7.35-7.45)
[2019-11-02 06:26] LABS: PO2(98.6) 27 mmHg (60-100)
[2019-11-02 06:27] LABS: MODALITY VENTILATOR; O2HB 31.9 % (95.0-99.0)
[2019-11-02] MEDS: DOPAMINE 800 MG/D5W 800 MG/500 ML IV.SOLN IV SCH ×7 (06:33→21:58)
[2019-11-02 06:51] LABS: INR 2.45; PROTIME 27.3 Seconds (11.0-16.0)
[2019-11-02 06:52] LABS: PTT 40.9 Seconds (22.3-41.8)
--- NOTE | 2019-11-02 06:58 | Diag Imaging Result Doc PS360 ---
EXAM: SHOULDER-RIGHT 11/02/2019 HISTORY: injury TECHNIQUE: Right humerus three views COMMENT: There is a comminuted fracture of the proximal humeral shaft. There is considerable soft tissue swelling. There are three principal fragments. IMPRESSION: Fracture proximal humerus. Electronically signed by Cristino Street 11/02/2019 6:55 AM
[2019-11-02 07:10] LABS: AGAP 38; ALB/GLOB RATIO 1.1; ALBUMIN 2.3 g/dL (3.5-5.0); ALKALINE PHOSPHATASE 195 U/L (32-104); BUN 77 mg/dL (8-22); CHLORIDE 94 mmol/L (98-107); COSMO 304; CREATININE 5.4 mg/dL (0.5-0.9); ESTIMATED GFR 8; GLUCOSE 131 mg/dL (70-104); SODIUM 140 mmol/L (136-145); TCO2 8 mmol/L (25-35); TOTAL BILIRUBIN 1.16 mg/dL (0.20-1.00); TOTAL PROTEIN 4.3 g/dL (6.3-8.3)
--- NOTE | 2019-11-02 07:13 | Diag Imaging Result Doc PS360 ---
EXAM: CHEST-PORTABLE 11/02/2019 HISTORY: central line placement TECHNIQUE: AP portable at 0035 COMMENT: There is an endotracheal tube with its tip at the michelle. There is a left subclavian central venous catheter with its tip in the superior vena cava. The lungs are less well-expanded than on 11/01/2019. Otherwise are has been no significant change. IMPRESSION: Stable chest. Electronically signed by Cristino Street 11/02/2019 7:11 AM
[2019-11-02 07:16] LABS: POTASSIUM 6.3 mmol/L (3.5-5.1)
--- NOTE | 2019-11-02 07:17 | Diag Imaging Result Doc PS360 ---
EXAM: CT HEAD W/O CONTRAST 11/01/2019 HISTORY: unresponsive TECHNIQUE: This exam was performed using automated exposure control, adjustment of mA or kV according to patient size, and/or use of iterative reconstruction technique. COMMENT: There is mild cerebral atrophy. There is no evidence of mass effect, bleed, or abnormal extra-axial fluid collection. Compared to 01/13/2016 the scalp hematoma which was present previously is no longer present but otherwise are has been no significant change. The visualized paranasal sinuses are clear. There is an endotracheal tube. The calvarium is intact. IMPRESSION: No evidence of acute intracranial disease. Electronically signed by Cristino Street 11/02/2019 7:15 AM
[2019-11-02 07:21] LABS: CALCIUM 7.1 mg/dL (8.8-10.2); GOT > 7000 U/L (10-30); GPT 6240 U/L (10-36)
[2019-11-02] MEDS ORDERED: ZOFRAN IV PRN (08:07)
[2019-11-02] MEDS: NEO-SYNEPHRINE 50 MG in NS 250 ML IV SCH ×6 (08:30→22:13)
[2019-11-02] MEDS ORDERED: ROCEPHIN 1 GM in NS 50 ML IV SCH (09:00)
[2019-11-02] MEDS ORDERED: HUMULIN R IV ONE (09:29)
[2019-11-02] MEDS ORDERED: SODIUM BICARBONATE 8.4% IV PUSH ONE (09:30)
[2019-11-02] MEDS ORDERED: D50W SYRINGE IV ONE (09:30)
[2019-11-02] MEDS: CLINDAMYCIN 300 MG in NS 50 ML IV SCH ×2 (09:31→17:01)
[2019-11-02] MEDS ORDERED: ALBUTEROL 0.5% INH CONC FOR HYPERKALEMIA INH ONE (09:31)
[2019-11-02] MEDS ORDERED: MAXIPIME 1 GM in NS 50 ML IV SCH (11:30)
[2019-11-02] MEDS ORDERED: PITRESSIN 40 UNIT in NS 100 ML IV SCH (13:00)
--- NOTE | 2019-11-02 13:48 | PROGRESS NOTE ---
DATE: 11/02/2019 SUBJECTIVE: The patient has no major complaints. OBJECTIVE: Vital Signs: Blood pressure is 129/78, heart rate of 111, respiratory rate of 32, temperature was 93 degrees, saturating 97% on 100%. Cardiovascular: Soft S1, S2. Lungs: Breath sounds are clear bilaterally. I do not appreciate rales or rhonchi. GI: Soft, nontender, nondistended. Bowel sounds are positive. HEENT: Her pupils are dilated. They are not fixed. She has conjunctival edema. LABORATORY DATA: Her potassium is still 6.3, her carbon dioxide is 8, her BUN and creatinine are 77 and 5.4. Her AST is greater than 7000, her ALT is 6240, her albumin is 2.3, her lactate is 18.2. Her blood gas shows pH is 6.88. I do not have a new white count. PROBLEM LIST: 1. Acute hypoxic respiratory failure due to sepsis and prolonged down time. She is on maximum ventilation. Will continue to follow. Unclear at this time what the etiology is. She had an acute event that caused syncope, it looks like, and she fell and fractured her humerus. That is a displaced comminuted fracture on that side. We will continue ventilatory support, but prognosis is not great. 2. Progressive septic shock. Unknown etiology. She is now on her fourth pressor at maximum dose. We are going to continue to monitor. Dr. Barnes is also helping. 3. 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 We will continue bicarbonate, and follow her levels closely. We will treat hyperkalemia. Repeat labs are pending. 4. Elevated troponin without really clear indication, but possibly demand ischemia. 5. Rhabdomyolysis. She is on bicarbonate drip. We will continue to track her CPK. 6. Ischemic hepatitis. We will get an abdominal ultrasound and follow closely. Continue to track her numbers. Prognosis is poor. We will update family. Also, I am concerned about her surviving this episode, and surviving it with neurological function intact. Apparently, she has been unresponsive or at least unaccounted for for up to 3 days. cc: Rui Barrios MD
--- NOTE | 2019-11-02 13:52 | Diag Imaging Result Doc PS360 ---
EXAM: HAND 2 VIEWS LEFT 11/02/2019 HISTORY: fall TECHNIQUE: Two views portable COMMENT: The fingers are flexed. There appears to be some osteoarthritis in the interphalangeal joints. There is chondrocalcinosis in the triangular fibrocartilage. There are some degenerative changes in the first metacarpocarpal joint. No evidence of acute fracture or dislocation is present. IMPRESSION: Arthritic changes. Electronically signed by Cristino Street 11/02/2019 1:49 PM
[2019-11-02 14:20] LABS: CALCIUM 6.7 mg/dL (8.8-10.2); CREATININE 5.3 mg/dL (0.5-0.9)
--- NOTE | 2019-11-02 15:07 | PULMONOLOGY CONSULTATION ---
DATE: 11/02/2019 REASON FOR CONSULTATION: Respiratory failure. HISTORY OF PRESENT ILLNESS: Ms. King is a 74-year-old white female without recent admission to this hospital. The patient was found unresponsive by neighbors who had not seen her for the last several days. She was hypothermic and severely tachycardic with a systolic blood pressure which quickly declined. She was intubated and initiated on mechanical ventilation. She has had a profound lactic acidosis and acidemia. Chest x-ray revealed atelectasis in the lingula, but otherwise clear. She had substantial bruising on the right side of her face, neck and upper extremity. CT scan of the head was performed which revealed no acute changes. Shoulder x-ray revealed a comminuted fracture of the proximal humeral shaft. She is now in the intensive care unit on vasopressors and mechanical ventilation. She has received at least 3 L of fluids for resuscitation and is currently on a bicarbonate drip. PAST MEDICAL HISTORY: 1. Hypertension. 2. Dyslipidemia. 3. Gastroesophageal reflux. 4. Hypothyroidism. 5. Osteoarthritis. 6. Bilateral cataract surgery. 7. History of lumbar back surgery. 8. Status post rotator cuff repair. 9. Status post cholecystectomy. SOCIAL HISTORY: Nonsmoker. The patient was drinking an occasional glass of wine on her 2018 admission. FAMILY HISTORY: Positive for heart disease and hypertension. REVIEW OF SYSTEMS: Cannot be obtained. PHYSICAL EXAMINATION: General: Reveals an unresponsive female on mechanical ventilation. She is currently receiving vasopressor support. She is on a Dejon Hugger for hypothermia. Blood pressure 94/73, heart rate 112, respiratory rate 32. HEENT: Pupils are equal but sluggish. Oropharynx appears clear with dried oral secretions which are crusted in the mouth. There is significant bruising on the right side of her face extending down into her neck into the shoulder and right upper extremity. Chest: Reveals good air entry bilaterally with minimal rhonchi. Cardiac: Increased rate, regular rhythm. Abdomen: Obese and soft. Extremities: Reveal mottling in the upper and lower extremities. LABORATORIES: White blood count 27.5, hemoglobin 11.0, platelet count 241,000. Sodium 140, potassium 6.3, chloride 94, bicarbonate level is 8, BUN 77, creatinine 5.4, bilirubin 1.2, AST 7000, ALT 6000, total protein 4.3, albumin 2.3, most recent lactate 18.2. Arterial blood gas reveals a pH of 6.88, pCO2 of 31, PO2 of 113 with a lactate of 18.2. IMPRESSION: A 74-year-old who appears to have fallen at home and sustained injury to the face, the shoulder with fracture of the right upper extremity. The patient now has: 1. Altered mental status. 2. Acute hypoxemic respiratory failure. 3. Hemodynamic shock with ongoing lactic acidosis. 4. Multiorgan failure associated with liver failure, respiratory failure, and kidney failure along with hemodynamic shock. DISCUSSION: Unfortunate 74-year-old with problems outlined above. She will receive aggressive resuscitation in support of respiratory and hemodynamic status. She has been placed on broad- spectrum antibiotics along with a bicarbonate drip. Her prognosis is extremely poor. PLAN: 1. Continue full ventilatory support. 2. Continue bicarbonate drip. 3. Continue gastric acid suppression. 4. Continue hemodynamic support. 5. Prognosis is poor. cc: Tez Barnes MD
--- NOTE | 2019-11-02 15:10 | Diag Imaging Result Doc PS360 ---
EXAM: US ABDOMEN-COMPLETE 11/02/2019 HISTORY: abdominal pain TECHNIQUE: Abdominal ultrasound COMMENT: The quality of the study is very poor due to the condition of the patient and body habitus. The gallbladder is apparently surgically absent although there is a anechoic structure in the area of the gallbladder fossa. This may represent a portion of the duodenum. The kidneys are without evidence of hydronephrosis or mass. The aorta is not demonstrated. The pancreas is not demonstrated. The portions of the inferior vena cava within the liver are unremarkable. The liver is hyperechoic. There is no evidence of biliary dilatation the common bile duct measuring 5 mm. There is antegrade flow in the portal vein. IMPRESSION: Hepatic steatosis. Limited study. Electronically signed by Cristino Street 11/02/2019 3:08 PM
[2019-11-02] MEDS ORDERED: LOVENOX SUBQ SCH (15:30)
[2019-11-02] MEDS ORDERED: EPINEPHRINE 8 MG in D5W 250 ML IV SCH (18:45)
[2019-11-02 19:19] LABS: HEMATOCRIT 29.7 % (37.0-47.0); HEMOGLOBIN 8.8 g/dL (12.0-16.0); MCH 32.5 PG (27-31); MCHC 29.6 g/dL (33-37); MCV 109.6 FL (81-99); MPV 11.2 FL (7.4-10.4); PLT 155 X1000 (130-400); RBC 2.71 XMIL (4.2-5.4); RDW 14.3 % (11.5-14.5); WBC 27.55 X1000 (4.8-10.8)
[2019-11-02 19:52] LABS: ALLEN TEST YES; BE -22.3 mmoll (-3.0-3.0); BLOOD TYPE ARTERIAL; HCO3-(ACT) 7.5 mmoll (20.0-26.0); METHB 1.2 % (0.0-1.5); O2(CT) 11.7 mL/dL (15.0-23.0); O2HB 94.6 % (95.0-99.0); PCO2(98.6) 23 mmHg (35-45); PO2(98.6) 87 mmHg (60-100); SAMPLE BLOOD; SAO2 96.7 % (95.0-100.0); SRATE 30 BPM; THB 8.7 g/dL (11.5-17.4); TVOL 500 mL
[2019-11-02 19:53] LABS: MODALITY VENTILATOR
[2019-11-02 19:55] LABS: pH(98.6) 7.05 (7.35-7.45)
[2019-11-02 20:50] LABS: CALCIUM 5.8 mg/dL (8.8-10.2); CREATININE 5.1 mg/dL (0.5-0.9); MAGNESIUM 2.5 mg/dL (1.5-2.7); POTASSIUM 6.6 mmol/L (3.5-5.1)
[2019-11-02] MEDS ORDERED: CALCIUM GLUCONATE 2 GM in NS 100 ML IV ONE (20:59)
[2019-11-02] MEDS ORDERED: LOKELMA POWDER PACKET PO SCH (21:02)
[2019-11-02] MEDS ORDERED: EPINEPHRINE SYRINGE ONE (23:00)
[2019-11-02] MEDS ORDERED: CALCIUM CHLORIDE ONE (23:00)
[2019-11-02] MEDS ORDERED: SODIUM BICARBONATE 8.4% ONE (23:00)
[2019-11-03 01:03] VITALS: BP 216/148
--- NOTE | 2019-11-03 05:31 | DISCHARGE SUMMARY ---
ADMISSION DATE: 11/02/2019 DISCHARGE DATE: 11/02/2019 HOSPITAL COURSE: The patient was found down by a neighbor for unknown length of time, but had not been contacted by anyone for 3 to 4 days. She was found to be in multiorgan system failure with respiratory failure requiring intubation, kidney failure, shock liver with progressive coagulopathy and presumed septic shock. She was placed on broad-spectrum antibiotics and pressors and fluid resuscitation was attempted. However, despite this patient had progressive decline with increasing lactic acidosis and increasing pressor requirements, eventually being on 5 pressors. Despite this, patient continued to further decline and eventually had cardiac arrest. CPR was initiated. Patient was given 4 rounds of epinephrine, 1 amp of calcium gluconate, 1 amp of calcium chloride, 1 amp of bicarbonate. While the code process was going on, Nursing contacted the patient's son who stated that in the event that end of life was imminent the patient had a living will that states she did not want heroic measures. At that point, the patient had briefly regained a pulse and I directly spoke with the son and after discussing the situation, he confirmed that he wanted to change her to comfort measures only. The patient again lost pulse shortly after that and with time of 22:55 on 11/02/2019. DISCHARGE MEDICATIONS: None, patient . FOLLOWUP AND PLAN: The patient . DISCHARGE EXAMINATION: Patient . Heart and breath sounds absent. Reflexes absent.
--- NOTE | 2019-11-03 07:20 | EKG Report ---
Test Performed on : 11/01/2019 11:05:41 PM Test Reason : unresponsive Blood Pressure : / mmHG Vent. 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
[2019-11-03] MEDS ORDERED: LOKELMA POWDER PACKET PO SCH (20:00)
[2019-11-07] MEDS ORDERED: VANCOMYCIN 1,500 MG in NS 250 ML IV SCH ×2 (05:30→06:30)
== END 2019-11-02 22:55 | disposition expired | DRG 871 ==
LOC: ED 20:47 → ICU 11-02 03:57 → SUATTDRO 11-02 03:57
PROVIDERS: ATTEND Internal Medicine